=== PATIENT | male | born 1965 | race Caucasian/White ===

== ENCOUNTER 2020-05-16 20:23 | Emergency (ER) | payer MEDICAID, OTHER ==
[~2020-05-16] VITALS: Ht 167.6 cm; Wt 90.7 kg
[2020-05-16 20:32] VITALS: BP 150/104
== END 2020-05-16 23:10 | disposition home or self-care (01) ==
LOC: EDBD 20:23 → ER 20:28
DX: T40.691A Poisoning by other narcotics, accidental (unintentional), initial encounter (principal); F17.210 Nicotine dependence, cigarettes, uncomplicated; Y92.89 Other specified places as the place of occurrence of the external cause